=== PATIENT | female | born 1995 | race Caucasian/White ===

== ENCOUNTER 2016-04-09 22:47 | Emergency (ER) | payer OTHER ==
[2016-04-10 03:05] LABS: BASO % 0.4 % (0.0-1.0); EOS # 0.4 K/mm3 (0.0-0.50); EOS % 3.7 % (0.0-3.0); LARGE UNSTAINED CELL # 0.1 K/mm3 (0.0-0.4); LARGE UNSTAINED CELL % 1.3 % (0.0-4.0); LYMPH # 2.4 K/mm3 (1.5-6.5); LYMPH % 23.8 % (24.0-44.0); MEAN CORPUSCULAR HEMOGLOBIN 29.1 pg (27.0-33.0); MEAN CORPUSCULAR HGB CONC 33.5 g/dl (32.0-36.5); MEAN CORPUSCULAR VOLUME 86.8 fl (80.0-96.0); MONO # 0.4 K/mm3 (0.0-0.8); MONO % 4.3 % (0.0-5.0); NEUTROPHILS # 6.4 K/mm3 (1.8-7.7); NEUTROPHILS % 66.4 % (36.0-66.0); PLATELET COUNT, AUTOMATED 224 k/mm3 (150-450); RED CELL DISTRIBUTION WIDTH 12.6 % (11.5-14.5); WHITE BLOOD COUNT 9.6 K/mm3 (4.0-10.0)
[2016-04-10 03:33] LABS: CONTROL LINE HCG INT CTR LINE PRESENT
[2016-04-10 03:40] LABS: ALBUMIN 4.4 GM/DL (3.2-5.2); ALBUMIN/GLOBULIN RATIO 1.38 (1.00-1.93); ALKALINE PHOSPHATASE 80 U/L (45-117); ALT/SGPT 21 U/L (12-78); AMYLASE 39 U/L (25-115); ANION GAP 11 MEQ/L (8-16); AST/SGOT 15 U/L (15-37); BILIRUBIN,DIRECT 0.1 MG/DL (0.0-0.2); BILIRUBIN,TOTAL 0.5 MG/DL (0.2-1.0); BLOOD UREA NITROGEN 10 MG/DL (7-18); CALCIUM LEVEL 9.3 MG/DL (8.5-10.1); CARBON DIOXIDE LEVEL 27 MEQ/L (21-32); CHLORIDE LEVEL 105 MEQ/L (98-107); CREATININE FOR GFR 0.79 MG/DL (0.55-1.02); GLOMERULAR FILTRATION RATE > 60.0 (>60); GLUCOSE, FASTING 82 MG/DL (70-105); POTASSIUM SERUM 3.6 MEQ/L (3.5-5.1); SODIUM LEVEL 143 MEQ/L (136-145); TOTAL PROTEIN 7.6 GM/DL (6.4-8.2)
[2016-04-10] MEDS ORDERED: ISOVUE-370 76% 100ML VIAL (Q9967) As Ordered ONE (03:57)
--- NOTE | 2016-04-10 05:00 | REPUSA ---
CLINICAL HISTORY: Abdominal pain. TECHNIQUE: Multiple axial, sagittal and coronal CT images were obtained through the abdomen and pelvi s after administration of intravenous contrast material. COMMENTS: The liver is of decreased attenuation without mass or defect. There is no intra or extrahepatic bilia ry ductal dilatation. The spleen is normal. The gallbladder is within normal limits. The pancreas is of normal contour and attenuation characteristics. There is no evidence of adrenal mass. Both kidneys demonstrate prompt and equal nephrograms. The kidneys are normal in size, shape and conf iguration. There is no evidence of renal or ureteral mass. No renal or ureteral calculi are identifie d. There is no hydroureter or hydronephrosis. No evidence for appendicitis. There is no bowel wall thickening. No evidence for small or large tanna l obstruction. There is no evidence of intrinsic or extrinsic bladder mass. Fluid-filled small bowels. 2.5 cm ruptur ed follicle/corpus luteum cyst of the right ovary. Minimal amount of free fluid in the pelvis. Images of the lung bases show no evidence of pleural or parenchymal mass. There are no pleural effusi ons. The bony structures are free of lytic or blastic lesions. IMPRESSION: Right ruptured follicle/corpus luteum cyst. Small amount of free fluid in the pelvis. Fluid-filled small bowels. Nonspecific finding that can be seen in developing enteritis. Mildly thickened bladder. Thank you for your kind referral of this patient.
--- NOTE | 2016-04-10 05:42 | EDDOCDS ---
Physician Documentation [facility] Name: Hellen Hidalgo Age: 20 yrs Sex: Female : 1995 Arrival Date: 04/09/2016 Time: 22:47 Bed 9 Private MD: EBEN LIAO Disposition: 04/10/16 05:12 Discharged to Home/Self Care. Impression: Unspecified ovarian cysts, Abdominal migraine. - Condition is Stable. - Discharge Instructions: Ovarian Cyst, Ovarian Cyst, [id number]. - Prescriptions for Percocet 5- 325 mg Oral Tablet - take 1 tablet by ORAL route 3 times per day As needed MDD: 4 tabs; 9 tablet. - Medication Reconciliation, Local Pharmacy Hours form. - Follow up: SCOOTER Byrne; When: 2 - 3 days; Reason: Recheck today's complaints, Continuance of care. - Problem is new. - Symptoms have improved. - Notes: No occupational activity until cleared by [facility]. Historical: - Allergies: no known allergies; - Home Meds: 1. none - PMHx: none; - PSHx: none; - Social history: Smoking status: Patient states was never smoker of tobacco. No barriers to communication noted, The patient speaks fluent Arabic. - Family history: Not pertinent. - : The pt / caregiver states he / she is not on anticoagulants. Home medication list is obtained from the patient. - Exposure Risk Screening:: None identified. [employer]ERSON [employer]: 04/09 22:57 LMP 03/08/2016 rs3 Vital Signs: 22:49 BP 164 / 96; Pulse 88; Resp 18; Temp 97.6(O); Pulse Ox 99% on R/A; Weight 60.33 kg / lr2 133 lbs (R); Height 5 ft. 0 in. (152.40 cm) (R); Pain 10/; 04/10 01:05 BP 155 / 86; Pulse 70; Resp 18; Temp 98.8(TE); Pulse Ox 100% on R/A; Pain 10/10; lf1 05:20 BP 138 / 90; Pulse 71; Resp 18; Temp 99.1(TE); Pulse Ox 98% on R/A; Pain 9/10; mdr 04/09 22:49 Body Mass Index 25.97 (60.33 kg, 152.40 cm) lr2 MDM: 02:32 IV Saline Lock ordered. cs11 02:32 NS 0.9% 1000 ml IV at bolus once ordered. cs11 02:33 CBC with Diff Ordered. EDMS 02:33 MED Profile Ordered. EDMS 02:33 Liver Profile Ordered. EDMS 02:33 HCG,Serum Qualitative Ordered. EDMS 02:33 Amylase Ordered. EDMS 02:33 Lipase Ordered. EDMS 03:24 CBC with Diff Reviewed. cs11 03:49 Financial registration complete. hs2 03:50 MED Profile Reviewed. gk1 03:50 Liver Profile Reviewed. gk1 03:50 HCG,Serum Qualitative Reviewed. gk1 03:50 Amylase Reviewed. gk1 03:50 Lipase Reviewed. gk1 03:50 [facility] Payment Agreement was scanned into [employer] and attached to record. hs2 03:53 CT ABD & PELVIS: IV Contrast Only Ordered. EDMS Administered Medications: 03:11 Drug: NS 0.9% 1000 ml [sodium chloride 0.9 % intravenous solution] Route: IV; Rate: af2 bolus; Site: left antecubital; Signatures: Dispatcher [employer] EDMS Leigh Ann Fair RN RN rs3 Joe Vines, DO DO cs11 Yaquelin Perez RN RN af2 Joyce Euceda, Reg Reg hs2 Laith Stover, DO DO gk1 The chart was reviewed and I authenticate all verbal orders and agree with the evaluation and treatment provided.Corrections: (The following items were deleted from the chart) 05:17 02:33 URINALYSIS+LAB ordered. EDMS EDMS 05:17 02:33 URINE CULTURE+MIGUEL ANGEL ordered. EDMS EDMS Attachments: 03:50 [facility] Payment Agreement hs2 MTDD
--- NOTE | 2016-04-10 05:42 | EDDOCDS ---
Nurse's Notes [facility] Name: Hellen Hidalgo Age: 20 yrs Sex: Female : 1995 Arrival Date: 04/09/2016 Time: 22:47 Bed 9 Private MD: EBEN LIAO Diagnosis: Unspecified ovarian cysts;Abdominal migraine Presentation: 04/09 22:54 Presenting complaint: Patient states: left lower quadrant pain for a week. denies rs3 radicular pain. has not taken any med. worse today. Adult Sepsis Screening: The patient does not have new or worsening altered mentation. Patient's respiratory rate is less than 22. Systolic blood pressure is greater than 100. Patient has a qSOFA score of 0- Negative Sepsis Screen. Suicide/Homicide risk assessment- the patient denies having any suicidal and/or homicidal ideations and does not present with any other emotional, behavioral or mental health complaints. 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 Transition of care: patient was not received from another setting of care. 22:54 Acuity: TED Level 3 rs3 22:54 Method Of Arrival: Walkin/Carried/Asstd rs3 Triage Assessment: 22:56 General: Appears in no apparent distress. Pain: Pain currently is 5 out of 10 on a pain rs3 scale. HIV screening NA for this visit Offered previously. GI: Reports lower abdominal pain. 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 none - PMHx: none; - PSHx: none; - Social history: Smoking status: Patient states was never smoker of tobacco. No barriers to communication noted, The patient speaks fluent Slovenian. - Family history: Not pertinent. - : The pt / caregiver states he / she is not on anticoagulants. Home medication list is obtained from the patient. - Exposure Risk Screening:: None identified. Screenin/17 05:38 Screening information is obtained from the patient. Fall risk: No risks identified. af2 Assistance ADL's: requires no assistance with activities of daily living. Abuse/DV Screen: The patient / caregiver reports he/she is: not in a situation that causes fear, pain or injury. Nutritional screening: No deficits noted. Advance Directives: Currently, there is no health care proxy. home support is adequate. Assessment: 01:05 General: Appears in no apparent distress, Behavior is cooperative. Pain: Location: lf1 suprapubic area Pain currently is 10 out of 10 on a pain scale. Neurological: Level of Consciousness is awake, alert. EENT: No deficits noted. Respiratory: Respiratory effort is even, unlabored. Derm: Skin is normal. 02:30 General: Appears in no apparent distress, Behavior is cooperative. GI: Bowel sounds af2 present X 4 quads. Abd is soft and non tender X 4 quads. Reports lower abdominal pain. 04:30 General: Appears in no apparent distress, Behavior is cooperative. Respiratory: Airway af2 is patent Respiratory effort is even, unlabored. GI: Reports lower abdominal pain. Derm: Skin is normal. 05:40 General: Appears in no apparent distress, Behavior is cooperative. Neurological: Level af2 of Consciousness is awake, alert. Respiratory: Airway is patent Respiratory effort is even, unlabored. GI: Reports lower abdominal pain. Derm: Skin is normal. Vital Signs: 04/09 22:49 BP 164 / 96; Pulse 88; Resp 18; Temp 97.6(O); Pulse Ox 99% on R/A; Weight 60.33 kg (R); lr2 Height 5 ft. 0 in. (152.40 cm) (R); Pain 10/10; 04/10 01:05 BP 155 / 86; Pulse 70; Resp 18; Temp 98.8(TE); Pulse Ox 100% on R/A; Pain 10/10; lf1 05:20 BP 138 / 90; Pulse 71; Resp 18; Temp 99.1(TE); Pulse Ox 98% on R/A; Pain 9/10; mdr 04/09 22:49 Body Mass Index 25.97 (60.33 kg, 152.40 cm) lr2 Vitals: 04/09 22:49 Log In Time: April 09, 2016 at 22:47. lr2 ED Course: 22:48 Patient visited by Lexi Trimble. lr2 22:48 Patient moved to Waiting lr2 22:49 [facility] is Private Physician. lr2 22:50 Patient moved to Pre RCE lr2 22:56 Triage Initiated rs3 04/10 01:05 Awaiting Pt awaiting bed availability in ED, re-assessed . lf1 01:07 Patient visited by Patricia Deal RN. lf1 01:08 Patient moved to Waiting sls1 02:07 Yaquelin Perez RN is Primary Nurse. ajs 02:07 Patient moved to 9 ajs 02:10 Laith Stover DO is PHCP. gk1 02:10 Joe Vines DO is Attending Physician. gk1 02:28 Patient visited by Joe Vines DO. cs11 03:19 Patient visited by Yaquelin Perez RN. af2 03:45 Patient name changed from Hellen\S\\S\Ellrich\S\ to Hellen\S\Nestan\S\Ellrich. EDMS 03:50 [facility] Payment Agreement was scanned into [employer] and attached to record. hs2 04:22 Patient visited by Yaquelin Perez RN. af2 04:56 Patient visited by Yaquelin Perez RN. af2 05:10 [facility], [facility] is Referral Physician. gk1 05:24 Patient visited by Manoj Ramirez PCA. mdr 05:31 CT ABD & PELVIS: IV Contrast Only Returned. EDMS 05:38 The patient / caregiver is instructed regarding the plan of care and ED course. af2 05:39 Inserted saline lock: 20 gauge in left antecubital area and blood collected. The af2 patient tolerated the procedure well. 05:39 Discontinued IV lock intact, bleeding controlled, pressure dressing applied, No af2 redness/swelling at site. No procedures done that require assistance. Administered Medications: 03:11 Drug: NS 0.9% 1000 ml [sodium chloride 0.9 % intravenous solution] Route: IV; Rate: af2 bolus; Site: left antecubital; Order Results: Lab Order: CBC with Diff; SPEC'M 04/10/16 02:58 Test: WHITE BLOOD COUNT; Value: 9.6; Range: 4.0-10.0; Units: K/mm3; Status: F Test: RED BLOOD COUNT; Value: 4.92; Range: 4.00-5.40; Units: M/mm3; Status: F Test: HEMOGLOBIN; Value: 14.3; Range: 12.0-16.0; Units: g/dl; Status: F Test: HEMATOCRIT; Value: 42.7; Range: 36.0-47.0; Units: %; Status: F Test: MEAN CORPUSCULAR VOLUME; Value: 86.8; Range: 80.0-96.0; Units: fl; Status: F Test: MEAN CORPUSCULAR HEMOGLOBIN; Value: 29.1; Range: 27.0-33.0; Units: pg; Status: F Test: MEAN CORPUSCULAR HGB CONC; Value: 33.5; Range: 32.0-36.5; Units: g/dl; Status: F Test: RED CELL DISTRIBUTION WIDTH; Value: 12.6; Range: 11.5-14.5; Units: %; Status: F Test: PLATELET COUNT, AUTOMATED; Value: 224; Range: 150-450; Units: k/mm3; Status: F Test: NEUTROPHILS %; Value: 66.4; Range: 36.0-66.0; Abnormal: Above high normal; Units: %; Status: F Test: LYMPH %; Value: 23.8; Range: 24.0-44.0; Abnormal: Below low normal; Units: %; Status: F Test: MONO %; Value: 4.3; Range: 0.0-5.0; Units: %; Status: F Test: EOS %; Value: 3.7; Range: 0.0-3.0; Abnormal: Above high normal; Units: %; Status: F Test: BASO %; Value: 0.4; Range: 0.0-1.0; Units: %; Status: F Test: LARGE UNSTAINED CELL %; Value: 1.3; Range: 0.0-4.0; Units: %; Status: F Test: NEUTROPHILS #; Value: 6.4; Range: 1.8-7.7; Units: K/mm3; Status: F Test: LYMPH #; Value: 2.4; Range: 1.5-6.5; Units: K/mm3; Status: F Test: MONO #; Value: 0.4; Range: 0.0-0.8; Units: K/mm3; Status: F Test: EOS #; Value: 0.4; Range: 0.0-0.50; Units: K/mm3; Status: F Test: BASO #; Value: 0.0; Range: 0.0-0.2; Units: K/mm3; Status: F Test: LARGE UNSTAINED CELL #; Value: 0.1; Range: 0.0-0.4; Units: K/mm3; Status: F Lab Order: MED Profile; SPEC'M 04/10/16 02:58 Test: GLUCOSE, FASTING; Value: 82; Range: 70-105; Units: MG/DL; Status: F Test: BLOOD UREA NITROGEN; Value: 10; Range: 7-18; Units: MG/DL; Status: F Test: CREATININE FOR GFR; Value: 0.79; Range: 0.55-1.02; Units: MG/DL; Status: F Test: SODIUM LEVEL; Range: 136-145; Units: MEQ/L; Status: I Test: POTASSIUM SERUM; Range: 3.5-5.1; Units: MEQ/L; Status: I Test: CHLORIDE LEVEL; Range: 98-107; Units: MEQ/L; Status: I Test: CARBON DIOXIDE LEVEL; Range: 21-32; Units: MEQ/L; Status: I Test: ANION GAP; Range: 8-16; Units: MEQ/L; Status: I Test: CALCIUM LEVEL; Range: 8.5-10.1; Units: MG/DL; Status: I Test: GLOMERULAR FILTRATION RATE; Value: > 60.0; Range: >60; Status: F Test: SODIUM LEVEL; Value: 143; Range: 136-145; Units: MEQ/L; Status: F Test: POTASSIUM SERUM; Value: 3.6; Range: 3.5-5.1; Units: MEQ/L; Status: F Test: CHLORIDE LEVEL; Value: 105; Range: 98-107; Units: MEQ/L; Status: F Test: CARBON DIOXIDE LEVEL; Value: 27; Range: 21-32; Units: MEQ/L; Status: F Test: ANION GAP; Value: 11; Range: 8-16; Units: MEQ/L; Status: F Test: CALCIUM LEVEL; Value: 9.3; Range: 8.5-10.1; Units: MG/DL; Status: F Test Note: ; Units are mL/min/1.73 m2 Chronic Kidney Disease Staging per NKF: Stage I & II GFR >=60 Normal to Mildly Decreased Stage III GFR 30-59 Moderately Decreased Stage IV GFR 15-29 Severely Decreased Stage V GFR <15 Very Little GFR Left ESRD GFR <15 on INSPECTOR EXHAUST EMISSIONS Lab Order: Liver Profile; SPEC'M 04/10/16 02:58 Test: AST/SGOT; Value: 15; Range: 15-37; Units: U/L; Status: F Test: ALT/SGPT; Value: 21; Range: 12-78; Units: U/L; Status: F Test: ALKALINE PHOSPHATASE; Value: 80; Range: 45-117; Units: U/L; Status: F Test: BILIRUBIN,TOTAL; Value: 0.5; Range: 0.2-1.0; Units: MG/DL; Status: F Test: BILIRUBIN,DIRECT; Value: 0.1; Range: 0.0-0.2; Units: MG/DL; Status: F Test: TOTAL PROTEIN; Value: 7.6; Range: 6.4-8.2; Units: GM/DL; Status: F Test: ALBUMIN; Value: 4.4; Range: 3.2-5.2; Units: GM/DL; Status: F Test: ALBUMIN/GLOBULIN RATIO; Value: 1.38; Range: 1.00-1.93; Status: F Lab Order: HCG,Serum Qualitative; SPEC'04/10/16 02:58 Test: HCG, SERUM QUALITATIVE; Value: NEGATIVE; Range: NEGATIVE; Status: F Lab Order: Amylase; 04/10/16 02:58 Test: AMYLASE; Value: 39; Range: 25-115; Units: U/L; Status: F Lab Order: Lipase; SPEC 04/10/16 02:58 Test: LIPASE; Value: 125; Range: 73-393; Units: U/L; Status: F Radiology Order: CT ABD & PELVIS: IV Contrast Only Test: CT ABD & PELVIS: IV Contrast Only REASON FOR EXAMINATION: Abdomen Pain; ; CLINICAL HISTORY: Abdominal pain.; TECHNIQUE: Multiple axial, sagittal and coronal CT images were obtained through the abdomen and pelvi; s after administration of intravenous contrast material.; COMMENTS:; The liver is of decreased attenuation without mass or defect. There is no intra or extrahepatic bilia; ry ductal dilatation. The spleen is normal. The gallbladder is within normal limits. The pancreas is; of normal contour and attenuation characteristics. There is no evidence of adrenal mass.; Both kidneys demonstrate prompt and equal nephrograms. The kidneys are normal in size, shape and conf; iguration. There is no evidence of renal or ureteral mass. No renal or ureteral calculi are identifie; d. There is no hydroureter or hydronephrosis.; No evidence for appendicitis. There is no bowel wall thickening. No evidence for small or large tanna; l obstruction.; There is no evidence of intrinsic or extrinsic bladder mass. Fluid-filled small bowels. 2.5 cm ruptur; ed follicle/corpus luteum cyst of the right ovary. Minimal amount of free fluid in the pelvis.; Images of the lung bases show no evidence of pleural or parenchymal mass. There are no pleural effusi; ons.; The bony structures are free of lytic or blastic lesions.; IMPRESSION:; Right ruptured follicle/corpus luteum cyst.; Small amount of free fluid in the pelvis.; Fluid-filled small bowels. Nonspecific finding that can be seen in developing enteritis.; Mildly thickened bladder.; Thank you for your kind referral of this patient.; ; Outcome: 05:12 Discharge ordered by Provider. gk1 05:40 Discharge Assessment: Patient awake, alert and oriented x 3. No cognitive and/or af2 functional deficits noted. Patient verbalized understanding of disposition instructions. patient administered narcotics - no. The following High Risk Discharge criteria are identified: None. Discharged to home ambulatory. Condition: stable. Discharge instructions given to patient, Instructed on discharge instructions, follow up and referral plans. medication usage, Demonstrated understanding of instructions, medications, Pt was receptive of discharge instructions/ teaching. CT Study completed. Property :Personal belongings accompany Pt. 05:41 Patient left the ED. af2 Signatures: Dispatcher [employer] EDVA Patricia DealRN RN lf1 Leigh Ann FairRN RN rs3 Joaquina Florez Shannon RN RN sls1 Joe Vines, DO DO cs11 Yaquelin Perez RN RN af2 Manoj Ramirez, SILK BRUSHER SILK BRUSHER Joyce Gonzalez, Reg Reg hs2 Laith Stover, DO DO gk1 Lexi Trimble lr2 MTDD
--- NOTE | 2016-04-12 06:42 | EDDOCDS ---
Physician Documentation [facility] Name: Hellen Hidalgo Age: 20 yrs Sex: Female : 1995 Arrival Date: 04/09/2016 Time: 22:47 Bed 9 Private MD: EBEN LIAO Disposition: 04/10/16 05:12 Discharged to Home/Self Care. Impression: Unspecified ovarian cysts, Abdominal migraine. - Condition is Stable. - Discharge Instructions: Ovarian Cyst, Ovarian Cyst, [id number]. - Prescriptions for Percocet 5- 325 mg Oral Tablet - take 1 tablet by ORAL route 3 times per day As needed MDD: 4 tabs; 9 tablet. - Medication Reconciliation, Local Pharmacy Hours form. - Follow up: SCOOTER Byrne; When: 2 - 3 days; Reason: Recheck today's complaints, Continuance of care. - Problem is new. - Symptoms have improved. - Notes: No occupational activity until cleared by [facility]. Historical: - Allergies: no known allergies; - Home Meds: 1. none - PMHx: none; - PSHx: none; - Social history: Smoking status: Patient states was never smoker of tobacco. No barriers to communication noted, The patient speaks fluent Malay. - Family history: Not pertinent. - : The pt / caregiver states he / she is not on anticoagulants. Home medication list is obtained from the patient. - Exposure Risk Screening:: None identified. 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 0 in. (152.40 cm) (R); Pain 10/; 04/10 01:05 BP 155 / 86; Pulse 70; Resp 18; Temp 98.8(TE); Pulse Ox 100% on R/A; Pain 10/10; lf1 05:20 BP 138 / 90; Pulse 71; Resp 18; Temp 99.1(TE); Pulse Ox 98% on R/A; Pain 9/10; mdr 04/09 22:49 Body Mass Index 25.97 (60.33 kg, 152.40 cm) lr2 MDM: 02:32 IV Saline Lock ordered. cs11 02:32 NS 0.9% 1000 ml IV at bolus once ordered. cs11 02:33 CBC with Diff Ordered. EDMS 02:33 MED Profile Ordered. EDMS 02:33 Liver Profile Ordered. EDMS 02:33 HCG,Serum Qualitative Ordered. EDMS 02:33 Amylase Ordered. EDMS 02:33 Lipase Ordered. EDMS 03:24 CBC with Diff Reviewed. cs11 03:49 Financial registration complete. hs2 03:50 MED Profile Reviewed. gk1 03:50 Liver Profile Reviewed. gk1 03:50 HCG,Serum Qualitative Reviewed. gk1 03:50 Amylase Reviewed. gk1 03:50 Lipase Reviewed. gk1 03:50 [facility] Payment Agreement was scanned into [employer] and attached to record. hs2 03:53 CT ABD & PELVIS: IV Contrast Only Ordered. EDMS 10:53 T-Sheet-- Draft Copy was scanned into [employer] and attached to record. gb 04/11 08:55 Radiology Report was scanned into [employer] and attached to record. gb Administered Medications: 04/10 03:11 Drug: NS 0.9% 1000 ml [sodium chloride 0.9 % intravenous solution] Route: IV; Rate: af2 bolus; Site: left antecubital; Signatures: Dispatcher [employer] EDVT Leia Weston, Reg Reg gb Leigh Ann FairRN RN rs3 Joe Vines, DO DO cs11 Yaquelin Perez RN RN af2 Joyce Euceda, Reg Reg hs2 Laith Stover, DO DO gk1 The chart was reviewed and I authenticate all verbal orders and agree with the evaluation and treatment provided.Corrections: (The following items were deleted from the chart) 05:17 02:33 URINALYSIS+LAB ordered. EDMS EDMS 05:17 02:33 URINE CULTURE+MIGUEL ANGEL ordered. EDMS EDMS Attachments: 03:50 [facility] Payment Agreement hs2 10:53 T-Sheet-- Draft Copy gb Chart Complete MTDD
--- NOTE | 2016-04-12 06:42 | EDDOCDS ---
Nurse's Notes [facility] Name: Hellen Hidalgo Age: 20 yrs Sex: Female : 1995 Arrival Date: 04/09/2016 Time: 22:47 Bed 9 Private MD: EBEN LIAO Diagnosis: Unspecified ovarian cysts;Abdominal migraine Presentation: 04/09 22:54 Presenting complaint: Patient states: left lower quadrant pain for a week. denies rs3 radicular pain. has not taken any med. worse today. Adult Sepsis Screening: The patient does not have new or worsening altered mentation. Patient's respiratory rate is less than 22. Systolic blood pressure is greater than 100. Patient has a qSOFA score of 0- Negative Sepsis Screen. Suicide/Homicide risk assessment- the patient denies having any suicidal and/or homicidal ideations and does not present with any other emotional, behavioral or mental health complaints. 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 Transition of care: patient was not received from another setting of care. 22:54 Acuity: TED Level 3 rs3 22:54 Method Of Arrival: Walkin/Carried/Asstd rs3 Triage Assessment: 22:56 General: Appears in no apparent distress. Pain: Pain currently is 5 out of 10 on a pain rs3 scale. HIV screening NA for this visit Offered previously. GI: Reports lower abdominal pain. 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 none - PMHx: none; - PSHx: none; - Social history: Smoking status: Patient states was never smoker of tobacco. No barriers to communication noted, The patient speaks fluent Icelandic. - Family history: Not pertinent. - : The pt / caregiver states he / she is not on anticoagulants. Home medication list is obtained from the patient. - Exposure Risk Screening:: None identified. Screenin/17 05:38 Screening information is obtained from the patient. Fall risk: No risks identified. af2 Assistance ADL's: requires no assistance with activities of daily living. Abuse/DV Screen: The patient / caregiver reports he/she is: not in a situation that causes fear, pain or injury. Nutritional screening: No deficits noted. Advance Directives: Currently, there is no health care proxy. home support is adequate. Assessment: 01:05 General: Appears in no apparent distress, Behavior is cooperative. Pain: Location: lf1 suprapubic area Pain currently is 10 out of 10 on a pain scale. Neurological: Level of Consciousness is awake, alert. EENT: No deficits noted. Respiratory: Respiratory effort is even, unlabored. Derm: Skin is normal. 02:30 General: Appears in no apparent distress, Behavior is cooperative. GI: Bowel sounds af2 present X 4 quads. Abd is soft and non tender X 4 quads. Reports lower abdominal pain. 04:30 General: Appears in no apparent distress, Behavior is cooperative. Respiratory: Airway af2 is patent Respiratory effort is even, unlabored. GI: Reports lower abdominal pain. Derm: Skin is normal. 05:40 General: Appears in no apparent distress, Behavior is cooperative. Neurological: Level af2 of Consciousness is awake, alert. Respiratory: Airway is patent Respiratory effort is even, unlabored. GI: Reports lower abdominal pain. Derm: Skin is normal. Vital Signs: 04/09 22:49 BP 164 / 96; Pulse 88; Resp 18; Temp 97.6(O); Pulse Ox 99% on R/A; Weight 60.33 kg (R); lr2 Height 5 ft. 0 in. (152.40 cm) (R); Pain 10/10; 04/10 01:05 BP 155 / 86; Pulse 70; Resp 18; Temp 98.8(TE); Pulse Ox 100% on R/A; Pain 10/10; lf1 05:20 BP 138 / 90; Pulse 71; Resp 18; Temp 99.1(TE); Pulse Ox 98% on R/A; Pain 9/10; mdr 04/09 22:49 Body Mass Index 25.97 (60.33 kg, 152.40 cm) lr2 Vitals: 04/09 22:49 Log In Time: April 09, 2016 at 22:47. lr2 ED Course: 22:48 Patient visited by Lexi Trimble. lr2 22:48 Patient moved to Waiting lr2 22:49 [facility], [facility] is Private Physician. lr2 22:50 Patient moved to Pre RCE lr2 22:56 Triage Initiated rs3 04/10 01:05 Awaiting Pt awaiting bed availability in ED, re-assessed . lf1 01:07 Patient visited by Patricia Deal RN. lf1 01:08 Patient moved to Waiting sls1 02:07 Yaquelin Perez RN is Primary Nurse. ajs 02:07 Patient moved to 9 ajs 02:10 Laith Stover DO is PHCP. gk1 02:10 Joe Vines DO is Attending Physician. gk1 02:28 Patient visited by Joe Vines DO. cs11 03:19 Patient visited by Yaquelin Perez RN. af2 03:45 Patient name changed from Hellen\S\\S\Ellrich\S\ to Hellen\S\Nestan\S\Ellrich. EDMS 03:50 [facility] [place] Agreement was scanned into redIT and attached to record. hs2 04:22 Patient visited by Yaquelin Perez RN. af2 04:56 Patient visited by Yaquelin Perez RN. af2 05:10 [facility], OB is Referral Physician. gk1 05:24 Patient visited by Manoj Ramirez PCA. mdr 05:31 CT ABD & PELVIS: IV Contrast Only Returned. EDMS 05:38 The patient / caregiver is instructed regarding the plan of care and ED course. af2 05:39 Inserted saline lock: 20 gauge in left antecubital area and blood collected. The af2 patient tolerated the procedure well. 05:39 Discontinued IV lock intact, bleeding controlled, pressure dressing applied, No af2 redness/swelling at site. No procedures done that require assistance. 10:53 T-Sheet-- Draft Copy was scanned into redIT and attached to record. gb 04/11 08:55 Radiology Report was scanned into redIT and attached to record. gb Administered Medications: 04/10 03:11 Drug: NS 0.9% 1000 ml [sodium chloride 0.9 % intravenous solution] Route: IV; Rate: af2 bolus; Site: left antecubital; Order Results: Lab Order: CBC with Diff; SPEC'M 04/10/16 02:58 Test: WHITE BLOOD COUNT; Value: 9.6; Range: 4.0-10.0; Units: K/mm3; Status: F Test: RED BLOOD COUNT; Value: 4.92; Range: 4.00-5.40; Units: M/mm3; Status: F Test: HEMOGLOBIN; Value: 14.3; Range: 12.0-16.0; Units: g/dl; Status: F Test: HEMATOCRIT; Value: 42.7; Range: 36.0-47.0; Units: %; Status: F Test: MEAN CORPUSCULAR VOLUME; Value: 86.8; Range: 80.0-96.0; Units: fl; Status: F Test: MEAN CORPUSCULAR HEMOGLOBIN; Value: 29.1; Range: 27.0-33.0; Units: pg; Status: F Test: MEAN CORPUSCULAR HGB CONC; Value: 33.5; Range: 32.0-36.5; Units: g/dl; Status: F Test: RED CELL DISTRIBUTION WIDTH; Value: 12.6; Range: 11.5-14.5; Units: %; Status: F Test: PLATELET COUNT, AUTOMATED; Value: 224; Range: 150-450; Units: k/mm3; Status: F Test: NEUTROPHILS %; Value: 66.4; Range: 36.0-66.0; Abnormal: Above high normal; Units: %; Status: F Test: LYMPH %; Value: 23.8; Range: 24.0-44.0; Abnormal: Below low normal; Units: %; Status: F Test: MONO %; Value: 4.3; Range: 0.0-5.0; Units: %; Status: F Test: EOS %; Value: 3.7; Range: 0.0-3.0; Abnormal: Above high normal; Units: %; Status: F Test: BASO %; Value: 0.4; Range: 0.0-1.0; Units: %; Status: F Test: LARGE UNSTAINED CELL %; Value: 1.3; Range: 0.0-4.0; Units: %; Status: F Test: NEUTROPHILS #; Value: 6.4; Range: 1.8-7.7; Units: K/mm3; Status: F Test: LYMPH #; Value: 2.4; Range: 1.5-6.5; Units: K/mm3; Status: F Test: MONO #; Value: 0.4; Range: 0.0-0.8; Units: K/mm3; Status: F Test: EOS #; Value: 0.4; Range: 0.0-0.50; Units: K/mm3; Status: F Test: BASO #; Value: 0.0; Range: 0.0-0.2; Units: K/mm3; Status: F Test: LARGE UNSTAINED CELL #; Value: 0.1; Range: 0.0-0.4; Units: K/mm3; Status: F Lab Order: MED Profile; SPEC'M 04/10/16 02:58 Test: GLUCOSE, FASTING; Value: 82; Range: 70-105; Units: MG/DL; Status: F Test: BLOOD UREA NITROGEN; Value: 10; Range: 7-18; Units: MG/DL; Status: F Test: CREATININE FOR GFR; Value: 0.79; Range: 0.55-1.02; Units: MG/DL; Status: F Test: SODIUM LEVEL; Range: 136-145; Units: MEQ/L; Status: I Test: POTASSIUM SERUM; Range: 3.5-5.1; Units: MEQ/L; Status: I Test: CHLORIDE LEVEL; Range: 98-107; Units: MEQ/L; Status: I Test: CARBON DIOXIDE LEVEL; Range: 21-32; Units: MEQ/L; Status: I Test: ANION GAP; Range: 8-16; Units: MEQ/L; Status: I Test: CALCIUM LEVEL; Range: 8.5-10.1; Units: MG/DL; Status: I Test: GLOMERULAR FILTRATION RATE; Value: > 60.0; Range: >60; Status: F Test: SODIUM LEVEL; Value: 143; Range: 136-145; Units: MEQ/L; Status: F Test: POTASSIUM SERUM; Value: 3.6; Range: 3.5-5.1; Units: MEQ/L; Status: F Test: CHLORIDE LEVEL; Value: 105; Range: 98-107; Units: MEQ/L; Status: F Test: CARBON DIOXIDE LEVEL; Value: 27; Range: 21-32; Units: MEQ/L; Status: F Test: ANION GAP; Value: 11; Range: 8-16; Units: MEQ/L; Status: F Test: CALCIUM LEVEL; Value: 9.3; Range: 8.5-10.1; Units: MG/DL; Status: F Test Note: ; Units are mL/min/1.73 m2 Chronic Kidney Disease Staging per NKF: Stage I & II GFR >=60 Normal to Mildly Decreased Stage III GFR 30-59 Moderately Decreased Stage IV GFR 15-29 Severely Decreased Stage V GFR <15 Very Little GFR Left ESRD GFR <15 on BANK MANAGER Lab Order: Liver Profile; [facility]04/10/16 02:58 Test: AST/SGOT; Value: 15; Range: 15-37; Units: U/L; Status: F Test: ALT/SGPT; Value: 21; Range: 12-78; Units: U/L; Status: F Test: ALKALINE PHOSPHATASE; Value: 80; Range: 45-117; Units: U/L; Status: F Test: BILIRUBIN,TOTAL; Value: 0.5; Range: 0.2-1.0; Units: MG/DL; Status: F Test: BILIRUBIN,DIRECT; Value: 0.1; Range: 0.0-0.2; Units: MG/DL; Status: F Test: TOTAL PROTEIN; Value: 7.6; Range: 6.4-8.2; Units: GM/DL; Status: F Test: ALBUMIN; Value: 4.4; Range: 3.2-5.2; Units: GM/DL; Status: F Test: ALBUMIN/GLOBULIN RATIO; Value: 1.38; Range: 1.00-1.93; Status: F Lab Order: HCG,Serum Qualitative; 04/10/16 02:58 Test: HCG, SERUM QUALITATIVE; Value: NEGATIVE; Range: NEGATIVE; Status: F Lab Order: Amylase; 04/10/16 02:58 Test: AMYLASE; Value: 39; Range: 25-115; Units: U/L; Status: F Lab Order: Lipase; 04/10/16 02:58 Test: LIPASE; Value: 125; Range: 73-393; Units: U/L; Status: F Radiology Order: CT ABD & PELVIS: IV Contrast Only Test: CT ABD & PELVIS: IV Contrast Only REASON FOR EXAMINATION: Abdomen Pain; ; CLINICAL HISTORY: Abdominal pain.; TECHNIQUE: Multiple axial, sagittal and coronal CT images were obtained through the abdomen and pelvi; s after administration of intravenous contrast material.; COMMENTS:; The liver is of decreased attenuation without mass or defect. There is no intra or extrahepatic bilia; ry ductal dilatation. The spleen is normal. The gallbladder is within normal limits. The pancreas is; of normal contour and attenuation characteristics. There is no evidence of adrenal mass.; Both kidneys demonstrate prompt and equal nephrograms. The kidneys are normal in size, shape and conf; iguration. There is no evidence of renal or ureteral mass. No renal or ureteral calculi are identifie; d. There is no hydroureter or hydronephrosis.; No evidence for appendicitis. There is no bowel wall thickening. No evidence for small or large tanna; l obstruction.; There is no evidence of intrinsic or extrinsic bladder mass. Fluid-filled small bowels. 2.5 cm ruptur; ed follicle/corpus luteum cyst of the right ovary. Minimal amount of free fluid in the pelvis.; Images of the lung bases show no evidence of pleural or parenchymal mass. There are no pleural effusi; ons.; The bony structures are free of lytic or blastic lesions.; IMPRESSION:; Right ruptured follicle/corpus luteum cyst.; Small amount of free fluid in the pelvis.; Fluid-filled small bowels. Nonspecific finding that can be seen in developing enteritis.; Mildly thickened bladder.; Thank you for your kind referral of this patient.; ; Outcome: 05:12 Discharge ordered by Provider. gk1 05:40 Discharge Assessment: Patient awake, alert and oriented x 3. No cognitive and/or af2 functional deficits noted. Patient verbalized understanding of disposition instructions. patient administered narcotics - no. The following High Risk Discharge criteria are identified: None. Discharged to home ambulatory. Condition: stable. Discharge instructions given to patient, Instructed on discharge instructions, follow up and referral plans. medication usage, Demonstrated understanding of instructions, medications, Pt was receptive of discharge instructions/ teaching. CT Study completed. Property :Personal belongings accompany Pt. 05:41 Patient left the ED. af2 Signatures: Dispatcher [employer] EDTX Leia Weston, Reg Reg gb Patricia DealRN RN lf1 Leigh Ann FairRN RN rs3 Joaquina Florez Shannon RN RN sls1 Joe Vines, DO cs11 Yaquelin PerezRN RN af2 Manoj Ramirez, WOOD CRAFTSMAN WOOD CRAFTSMAN mdr Joyce Euceda, Reg Reg hs2 Jolanta Laith, DO DO gk1 Lexi Trimble lr2 Chart Complete MTDD
--- NOTE | 2016-04-12 06:42 | EDDOCDS ---
Physician Documentation [facility] Name: Hellen Hidalgo Age: 20 yrs Sex: Female : 1995 Arrival Date: 04/09/2016 Time: 22:47 Bed 9 Private MD: EBEN LIAO Disposition: 04/10/16 05:12 Discharged to Home/Self Care. Impression: Unspecified ovarian cysts, Abdominal migraine. - Condition is Stable. - Discharge Instructions: Ovarian Cyst, Ovarian Cyst, [id number]. - Prescriptions for Percocet 5- 325 mg Oral Tablet - take 1 tablet by ORAL route 3 times per day As needed MDD: 4 tabs; 9 tablet. - Medication Reconciliation, Local Pharmacy Hours form. - Follow up: [facility]; When: 2 - 3 days; Reason: Recheck today's complaints, Continuance of care. - Problem is new. - Symptoms have improved. - Notes: No occupational activity until cleared by [facility] services. Historical: - Allergies: no known allergies; - Home Meds: 1. none - PMHx: none; - PSHx: none; - Social history: Smoking status: Patient states was never smoker of tobacco. No barriers to communication noted, The patient speaks fluent Latvian. - Family history: Not pertinent. - : The pt / caregiver states he / she is not on anticoagulants. Home medication list is obtained from the patient. - Exposure Risk Screening:: None identified. 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 0 in. (152.40 cm) (R); Pain 10/; 04/10 01:05 BP 155 / 86; Pulse 70; Resp 18; Temp 98.8(TE); Pulse Ox 100% on R/A; Pain 10/10; lf1 05:20 BP 138 / 90; Pulse 71; Resp 18; Temp 99.1(TE); Pulse Ox 98% on R/A; Pain 9/10; mdr 04/09 22:49 Body Mass Index 25.97 (60.33 kg, 152.40 cm) lr2 MDM: 02:32 IV Saline Lock ordered. cs11 02:32 NS 0.9% 1000 ml IV at bolus once ordered. cs11 02:33 CBC with Diff Ordered. EDMS 02:33 MED Profile Ordered. EDMS 02:33 Liver Profile Ordered. EDMS 02:33 HCG,Serum Qualitative Ordered. EDMS 02:33 Amylase Ordered. EDMS 02:33 Lipase Ordered. EDMS 03:24 CBC with Diff Reviewed. cs11 03:49 Financial registration complete. hs2 03:50 MED Profile Reviewed. gk1 03:50 Liver Profile Reviewed. gk1 03:50 HCG,Serum Qualitative Reviewed. gk1 03:50 Amylase Reviewed. gk1 03:50 Lipase Reviewed. gk1 03:50 [facility] Payment Agreement was scanned into [employer] and attached to record. hs2 03:53 CT ABD & PELVIS: IV Contrast Only Ordered. EDMS 10:53 T-Sheet-- Draft Copy was scanned into [employer] and attached to record. gb 04/11 08:55 Radiology Report was scanned into [employer] and attached to record. gb Administered Medications: 04/10 03:11 Drug: NS 0.9% 1000 ml [sodium chloride 0.9 % intravenous solution] Route: IV; Rate: af2 bolus; Site: left antecubital; Signatures: Dispatcher [employer] EDAK Leia Weston, Reg Reg gb Leigh Ann FairRN RN rs3 Joe Vines, DO DO cs11 Yaquelin Perez RN RN af2 Joyce Euceda, Reg Reg hs2 Laith Stover, DO DO gk1 The chart was reviewed and I authenticate all verbal orders and agree with the evaluation and treatment provided.Corrections: (The following items were deleted from the chart) 05:17 02:33 URINALYSIS+LAB ordered. EDMS EDMS 05:17 02:33 URINE CULTURE+MIGUEL ANGEL ordered. EDMS EDMS Attachments: 03:50 [facility] Payment Agreement hs2 10:53 T-Sheet-- Draft Copy gb Chart Complete MTDD
== END 2016-04-10 05:41 | disposition home or self-care (01) ==
LOC: M ED 22:47
DX: N83.11 Corpus luteum cyst of right ovary (principal)
CPT/HCPCS: 36415; 74177; 80048; 80076; 82150; 83690; 84703; 85025; 99284; Q9967

== ENCOUNTER 2016-10-30 15:58 | Emergency (ER) | payer OTHER ==
[~2016-10-30] VITALS: Ht 152.4 cm; Wt 65.9 kg
[2016-10-30] MEDS ORDERED: MORPHINE 4 MG/ML 1ML SYRINGE IV PRN (17:30)
[2016-10-30] MEDS ORDERED: NS 1,000 ML IV ONE (17:30)
[2016-10-30 18:09] LABS: ADD MORPHOLOGY? NO; BASO % 0.3 % (0.0-1.0); EOS # 0.6 K/mm3 (0.0-0.50); EOS % 4.8 % (0.0-3.0); LARGE UNSTAINED CELL # 0.2 K/mm3 (0.0-0.4); LARGE UNSTAINED CELL % 1.5 % (0.0-4.0); LYMPH # 2.4 K/mm3 (1.5-6.5); LYMPH % 19.5 % (24.0-44.0); MEAN CORPUSCULAR HEMOGLOBIN 30.7 pg (27.0-33.0); MEAN CORPUSCULAR HGB CONC 35.1 g/dl (32.0-36.5); MEAN CORPUSCULAR VOLUME 87.4 fl (80.0-96.0); MONO # 0.6 K/mm3 (0.0-0.8); MONO % 4.8 % (0.0-5.0); NEUTROPHILS # 8.5 K/mm3 (1.8-7.7); NEUTROPHILS % 69.1 % (36.0-66.0); PLATELET COUNT, AUTOMATED 238 k/mm3 (150-450); RED CELL DISTRIBUTION WIDTH 12.7 % (11.5-14.5); WHITE BLOOD COUNT 12.3 K/mm3 (4.0-10.0)
[2016-10-30 18:36] LABS: CONTROL LINE HCG INT CTR LINE PRESENT
[2016-10-30 18:41] LABS: ANION GAP 7 MEQ/L (8-16); BLOOD UREA NITROGEN 9 MG/DL (7-18); CALCIUM LEVEL 8.7 MG/DL (8.5-10.1); CARBON DIOXIDE LEVEL 25 MEQ/L (21-32); CHLORIDE LEVEL 109 MEQ/L (98-107); GLOMERULAR FILTRATION RATE > 60.0 (>60); GLUCOSE, FASTING 82 MG/DL (70-105); SODIUM LEVEL 141 MEQ/L (136-145)
--- NOTE | 2016-10-30 18:46 | REP ---
Clinical: Pelvic pain . Technique: Transabdominal pelvic ultrasound followed by transvaginal examination for better evaluation of the endometrium and adnexa with color Doppler evaluation of the ovaries. Findings: Bladder is unremarkable and measures 8.3 x 4.0 x 8.8 cm . Normal anteverted uterus measures 6.9 x 4.2 x 4.7 cm . The endometrial complex measures 2.1 mm thickness. No discrete uterine or endometrial abnormalities are appreciated. Bilateral ovaries are normal in appearance and vascularity without evidence for torsion. Right ovary measures 3.6 x 2.0 x 2.4 cm ; R I = 0.48 . Left ovary measures 4.9 x 3.7 x 4.0 cm with 3.7 cm cyst hemorrhagic cyst and small amount of adjacent fluid; R I = 0.52 . Small amount of free fluid in the posterior cul-de-sac. Impression: 1. Left hemorrhagic cyst and adjacent free fluid at the site of maximal tenderness suggests ruptured ovarian cyst. No evidence for torsion. Signed by Abraham Dial MD 10/30/2016 06:37 P
[2016-10-30 19:12] VITALS: BP 125/79
[2016-10-30] MEDS ORDERED: IBUP80TA PO (19:20)
== END 2016-10-30 19:27 | disposition home or self-care (01) ==
LOC: M ED 15:58
DX: N83.202 Unspecified ovarian cyst, left side (principal); Z87.42 Personal history of other diseases of the female genital tract

== ENCOUNTER 2016-11-03 09:49 | Emergency (ER) | payer OTHER ==
[~2016-11-03] VITALS: Ht 152.4 cm; Wt 65.9 kg
[~2016-11-03 09:49] MED LIST: IBUP80TA PO
[2016-11-03] MEDS ORDERED: ONDANSETRON 4MG/2ML VIAL (J2405) IV ONE (10:15)
[2016-11-03] MEDS ORDERED: NS 1,000 ML IV ONE (10:15)
[2016-11-03] MEDS: MORPHINE 4 MG/ML 1ML SYRINGE IV PRN ×2 (11:06→12:21)
[2016-11-03 11:20] LABS: BASO % 0.4 % (0.0-1.0); EOS # 0.5 K/mm3 (0.0-0.50); EOS % 4.5 % (0.0-3.0); LARGE UNSTAINED CELL # 0.1 K/mm3 (0.0-0.4); LARGE UNSTAINED CELL % 0.9 % (0.0-4.0); LYMPH # 1.7 K/mm3 (1.5-6.5); LYMPH % 14.7 % (24.0-44.0); MEAN CORPUSCULAR HEMOGLOBIN 29.7 pg (27.0-33.0); MEAN CORPUSCULAR VOLUME 87.6 fl (80.0-96.0); MONO # 0.6 K/mm3 (0.0-0.8); MONO % 5.5 % (0.0-5.0); NEUTROPHILS # 8.2 K/mm3 (1.8-7.7); NEUTROPHILS % 74.1 % (36.0-66.0); PLATELET COUNT, AUTOMATED 244 k/mm3 (150-450); RED CELL DISTRIBUTION WIDTH 13.1 % (11.5-14.5); WHITE BLOOD COUNT 11.1 K/mm3 (4.0-10.0)
--- NOTE | 2016-11-03 11:22 | REP ---
Clinical: Pelvic pain with history of ovarian cyst. Technique: Transabdominal pelvic ultrasound followed by transvaginal examination for better evaluation of the endometrium and adnexa with color Doppler evaluation of the ovaries. Findings: Bladder is empty . Normal retroverted uterus measures 6.9 x 5.0 x 5.2 cm . The endometrial complex measures 11.0 mm thickness. No discrete uterine or endometrial abnormalities are appreciated. Bilateral ovaries are normal in vascularity without evidence for torsion. Right ovary measures 3.2 x 2.1 x 1.9 cm ; R I = 0.55 . Left ovary measures 5.3 x 4.6 x 5.0 cm and includes 4.6 x 4.1 x 4.5 cm hemorrhagic cyst minimally enlarged compared to prior examination ; R I = 0.51 . Trace pelvic fluid . Impression: 1. continued evidence for 4.6 cm left ovarian hemorrhagic cyst minimally enlarged from prior examination. 2. Normal stable appearance to the uterus. No evidence for ovarian torsion. Signed by Abraham Dial MD 11/03/2016 11:14 A
[2016-11-03 11:38] LABS: ANION GAP 6 MEQ/L (8-16); BLOOD UREA NITROGEN 10 MG/DL (7-18); CALCIUM LEVEL 9.1 MG/DL (8.5-10.1); CARBON DIOXIDE LEVEL 29 MEQ/L (21-32); CHLORIDE LEVEL 107 MEQ/L (98-107); CREATININE FOR GFR 0.63 MG/DL (0.55-1.02); GLOMERULAR FILTRATION RATE > 60.0 (>60); GLUCOSE, FASTING 84 MG/DL (70-105); POTASSIUM SERUM 4.1 MEQ/L (3.5-5.1); SODIUM LEVEL 142 MEQ/L (136-145)
[2016-11-03] MEDS ORDERED: ISOVUE-370 76% 100ML VIAL (Q9967) As Ordered ONE (12:25)
--- NOTE | 2016-11-03 12:47 | REP ---
Clinical: Acute lower abdominal pain. Technique: Axial contrast enhanced images from the lung bases to the pubic symphysis using 100 ml Isovue 370 intravenous contrast material with coronal and sagittal re-formations. Findings: Lower abdominal pain may likely be related to 4.7 cm left ovarian cyst with small amount of pelvic fluid. The uterus and right adnexa appear normal. Liver, spleen, pancreas, gallbladder, bilateral adrenal glands and kidneys are normal. The enteric system is without obstruction or acute inflammatory process. Pelvis demonstrates normal bladder and age-appropriate uterus/right adnexa. No ascites. No free air. No adenopathy. Vasculature normal. Surrounding musculoskeletal structures are intact. Impression: 1. Lower abdominal pain may be secondary to 4.7 cm left ovarian cyst. 2. Otherwise normal contrast enhanced CT of the abdomen and pelvis. Signed by Abraham Dial MD 11/03/2016 12:39 P
[2016-11-03 13:14] VITALS: BP 125/83
[2016-11-03] MEDS ORDERED: NORCOTAB PO (13:16)
== END 2016-11-03 13:27 | disposition home or self-care (01) ==
LOC: M ED 09:49
DX: N83.202 Unspecified ovarian cyst, left side (principal); Z87.42 Personal history of other diseases of the female genital tract
CPT/HCPCS: 74177; 76830; 76856; 80048; 81001; 81025; 85025; 87086; 93976; 96361; 96374; 96375; 96376; 99284; J2405; Q9967

== ENCOUNTER 2016-11-18 20:59 | Emergency (ER) | payer OTHER ==
[~2016-11-18] VITALS: Ht 152.4 cm; Wt 65.9 kg
[~2016-11-18 20:59] MED LIST changes: +NORCOTAB PO
[2016-11-18] MEDS ORDERED: ONDANSETRON 4MG/2ML VIAL (J2405) IV ONE (21:45)
[2016-11-18] MEDS ORDERED: MORPHINE 4 MG/ML 1ML SYRINGE IV PRN (21:45)
[2016-11-18] MEDS ORDERED: NS 1,000 ML IV ONE (21:45)
[2016-11-18 22:13] LABS: CONTROL LINE UCG INT CTR LINE PRESENT
[2016-11-18 22:14] LABS: BASO # 0.1 10^3/uL (0.0-0.2); BASO % 0.6 % (0.0-1.0); EOS # 0.2 10^3/uL (0.0-0.50); EOS % 1.6 % (0.0-3.0); IMMATURE GRANULOCYTE % 0.3 % (0-0); LYMPH # 2.3 10^3/uL (1.5-6.5); LYMPH % 19.6 % (24.0-44.0); MEAN CORPUSCULAR HEMOGLOBIN 29.1 pg (27.0-33.0); MEAN CORPUSCULAR HGB CONC 33.8 g/dl (32.0-36.5); MEAN CORPUSCULAR VOLUME 86.1 fl (80.0-96.0); MONO # 0.9 10^3/uL (0.0-0.8); MONO % 7.8 % (0.0-5.0); NEUTROPHILS # 8.2 10^3/uL (1.8-7.7); NEUTROPHILS % 70.1 % (36.0-66.0); PLATELET COUNT, AUTOMATED 300 10^3/uL (150-450); RED CELL DISTRIBUTION WIDTH 12.7 % (11.5-14.5); WHITE BLOOD COUNT 11.7 10^3/uL (4.0-10.0)
[2016-11-18 22:18] LABS: ADD MORPHOLOGY? NO
[2016-11-18 22:40] LABS: ALBUMIN 4.1 GM/DL (3.2-5.2); ALBUMIN/GLOBULIN RATIO 1.24 (1.00-1.93); ALKALINE PHOSPHATASE 64 U/L (45-117); ALT/SGPT 28 U/L (12-78); ANION GAP 6 MEQ/L (8-16); AST/SGOT 17 U/L (15-37); BILIRUBIN,DIRECT 0.2 MG/DL (0.0-0.2); BILIRUBIN,TOTAL 0.6 MG/DL (0.2-1.0); BLOOD UREA NITROGEN 15 MG/DL (7-18); CALCIUM LEVEL 9.2 MG/DL (8.5-10.1); CARBON DIOXIDE LEVEL 26 MEQ/L (21-32); CHLORIDE LEVEL 106 MEQ/L (98-107); GLOMERULAR FILTRATION RATE > 60.0 (>60); GLUCOSE, FASTING 70 MG/DL (70-105); POTASSIUM SERUM 3.9 MEQ/L (3.5-5.1); SODIUM LEVEL 138 MEQ/L (136-145); TOTAL PROTEIN 7.4 GM/DL (6.4-8.2)
[2016-11-18] MEDS ORDERED: ISOVUE-370 76% 100ML VIAL (Q9967) As Ordered ONE (23:00)
--- NOTE | 2016-11-18 23:40 | REPUSA ---
CT of the abdomen and pelvis with contrast Clinical statement: Pain. Technique: Multiple axial CT images were obtained from the base of the lungs through the floor of the pelvis utilizing 5 mm axial slices after administration of nonionic intravenous contrast. Coronal an d sagittal reconstructions were also obtained. Comparison: 04/10/2016. Findings: Chest: The visualized lung bases are clear. Abdomen: The liver, spleen, pancreas, kidneys, gallbladder, and adrenal glands are unremarkable. The aorta is within normal limits. There is no evidence of abdominal lymphadenopathy or ascites. Pelvis: The bowel is unremarkable, with no obstructive or inflammatory changes. The urinary bladder i s within normal limits. The other pelvic structures appear grossly intact. There is no evidence of pe lvic lymphadenopathy or ascites. Bones: There are no suspicious osseous abnormalities seen. Impression: Unremarkable CT examination of the abdomen and pelvis.
[2016-11-18] MEDS ORDERED: NORCO 5/325MG TABLET (BULK FOR ED) PO ONE (23:45)
[2016-11-18 23:52] VITALS: BP 118/76
== END 2016-11-19 00:07 | disposition home or self-care (01) ==
LOC: M ED 20:59
DX: R10.31 Right lower quadrant pain (principal); M54.5 Low back pain; Z87.42 Personal history of other diseases of the female genital tract
CPT/HCPCS: 36415; 74177; 80048; 80076; 81001; 83690; 84703; 85025; 96361; 96374; 96375; 99284; J2405; Q9967

== ENCOUNTER 2017-11-30 09:53 | Emergency (ER) | payer OTHER ==
[2017-11-30] MEDS: KETOROLAC 60 MG/2 ML VIAL (J1885) IM (10:29)
[2017-11-30] MEDS: ANEXSIA, NORCO 7.5MG/325MG TABLET(HYDROCODONE/APAP) PO (11:47)
[2017-11-30] MEDS: METHOCARBAMOL 500 MG TAB PO (12:41)
[2017-11-30 13:17] LABS: AMORPHOUS SEDIMENT SMALL (NEGATIVE); APPEARANCE, URINE HAZY (CLEAR); BACTERIA, URINE AUTO NEGATIVE (NEGATIVE); BILIRUBIN, URINE AUTO NEGATIVE (NEGATIVE); BLOOD, URINE BLOOD NEGATIVE (NEGATIVE); COLOR, URINE YELLOW (YELLOW); GLUCOSE, URINE (UA) AUTO NEGATIVE (NEGATIVE); KETONE, URINE AUTO NEGATIVE (NEGATIVE); LEUKOCYTE ESTERASE, URINE AUTO NEGATIVE (NEGATIVE); MUCUS, URINE MODERATE (NEGATIVE); NITRITE, URINE AUTO NEGATIVE (NEGATIVE); PROTEIN, URINE AUTO NEGATIVE (NEGATIVE); RBC, URINE AUTO 3 /HPF (0-3); SPECIFIC GRAVITY URINE AUTO 1.018 (1.002-1.035); SQUAMOUS EPITHELIAL CELL UR AU 1 /HPF (0-6); UROBILINOGEN, URINE AUTO 0.2 mg/dL (0.0-2.0); WBC, URINE AUTO 6 /HPF (0-3)
== END 2017-11-30 14:16 | disposition home or self-care (01) ==
LOC: M ED 09:53
DX: M62.830 Muscle spasm of back (principal); Z79.899 Other long term (current) drug therapy
CPT/HCPCS: J1885

== ENCOUNTER 2017-12-06 08:27 | Emergency (ER) | payer OTHER ==
[2017-12-06] MEDS: ONDANSETRON 4MG/2ML VIAL (J2405) IV (08:58)
[2017-12-06] MEDS: NS 1,000 ML IV (08:59)
[2017-12-06] MEDS: KETOROLAC 30 MG/ML VIAL (J1885) IV (08:59)
[2017-12-06] MEDS: MORPHINE 4 MG/ML 1ML VIAL/SYRINGE (J2270) IV ×2 (09:00→11:31)
== END 2017-12-06 12:22 | disposition home or self-care (01) ==
LOC: M ED 08:27
DX: M54.42 Lumbago with sciatica, left side (principal)
CPT/HCPCS: J2270

== ENCOUNTER 2018-01-30 19:08 | Emergency (ER) | payer OTHER ==
[2018-01-30] MEDS ORDERED: AUGMENTIN 875 MG TAB As Ordered (19:58)
[2018-01-30] MEDS: AUGMENTIN 875 MG TAB PO (20:00)
== END 2018-01-30 21:28 | disposition home or self-care (01) ==
LOC: M ED 19:08
DX: S60.475A Other superficial bite of left ring finger, initial encounter (principal); W54.0XXA Bitten by dog, initial encounter; Y92.018 Other place in single-family (private) house as the place of occurrence of the external cause
CPT/HCPCS: 73140

== ENCOUNTER 2018-04-03 15:43 | Emergency (ER) | payer OTHER ==
[~2018-04-03] VITALS: Ht 152.4 cm; Wt 67.3 kg
[~2018-04-03 15:43] MED LIST changes: +AUGM875T28 PO; +NAPR-50 PO; +ROBA500T PO; +VOLT1GEL15 TOP; +XULA1DIS TOP
[2018-04-03] MEDS ORDERED: CETI10TA (16:10)
[2018-04-03] MEDS ORDERED: FLUTISP (16:10)
[2018-04-03] MEDS ORDERED: KETOROLAC 30 MG/ML VIAL (J1885) IV ONE (17:15)
[2018-04-03] MEDS ORDERED: METOCLOPRAMIDE INJ 10MG/2ML VIAL (J2765) IV ONE (17:15)
[2018-04-03] MEDS ORDERED: NS 500 ML IV ONE (17:15)
[2018-04-03 18:05] VITALS: BP 149/93
[2018-04-03] MEDS ORDERED: ONDA4TAB6 PO (18:12)
[2018-04-03] MEDS ORDERED: AMOX875T PO (18:12)
[2018-04-03] MEDS ORDERED: ACETAMINOPHEN 325 MG TAB PO ONE (18:15)
[2018-04-03] MEDS ORDERED: AMOXICILLIN 500 MG CAP PO ONE (18:15)
== END 2018-04-03 18:23 | disposition home or self-care (01) ==
LOC: M ED 15:43
DX: H66.91 Otitis media, unspecified, right ear (principal); R51 Headache; R50.9 Fever, unspecified
CPT/HCPCS: 96374; 96375; 99284; J1885; J2765